=== PATIENT | male | born 1965 | race American Indian/Alaskan Native ===

== ENCOUNTER 2017-01-19 13:47 | Emergency (ER) | payer MEDICAID ==
[2017-01-19 14:10] VITALS: BP 109/59
[2017-01-19] MEDS ORDERED: LORazepam 2 MG/ML MDV IVPUSH ONE (14:31)
[2017-01-19] MEDS ORDERED: Sodium Chloride 0.9% 10 ML Syringe FLUSH PRN (14:32)
--- NOTE | 2017-01-19 14:44 | EDM.PDOC ---
ED HPI GENERAL MEDICAL PROBLEM - General Chief Complaint: Drug or Alcohol Abuse Stated Complaint: BEEN DRINKING Time Seen by Provider: 01/19/17 14:10 Source of Information: Reports: Patient, Police History Limitations: Reports: No limitations - History of Present Illness INITIAL COMMENTS - FREE TEXT/NARRATIVE: Patient presents today via [facility] police for evaluation for detox. Patient alert, oriented x 3, diaphoretic, shaking of body. Able to answer questions appropriately. He denies hallucinations, nausea, vomiting and diarrhea at this time. [place] reports he likes to drink whiskey, beer or whatever he has available on a daily basis. He uses hydrocodone, marijuana on a weekly or daily basis. Patient appears to be experiencing withdrawal. Onset: today Onset Date: 01/19/17 Location: Reports: generalized Treatments TELEVISION PRODUCTION CLERK: Reports: Other (see below) Other Treatments TELEVISION PRODUCTION CLERK: Patient received insulin per [facility]. Bilateral Leg Pain Score (Numeric/FACES): 7 - Related Data Allergies Allergy/AdvReac Type Severity Reaction Status Date / Time tramadol Allergy Seizure Verified 01/19/17 14:28 Past Medical History Cardiovascular History: Reports: Hypertension Neurological History: Reports: Neuropathy, diabetic Psychiatric History: Reports: Addiction Endocrine/Metabolic History: Reports: Diabetes, type II - Past Surgical History Cardiovascular Surgical History: Reports: Vascular surgery Social & Family History - Tobacco Use Smoking Status *Q: Former Smoker Used Tobacco, but Quit: Yes Month Tobacco Last Used: january - Caffeine Use Caffeine Use: Reports: Coffee - Alcohol Use Days Per Week of Alcohol Use: 7 Number of Drinks Per Day: 10 Total Drinks Per Week: 70 - Recreational Drug Use Recreational Drug Use: Yes Drug Use in Last 12 Months: Yes Recreational Drug Type: Reports: Marijuana/Hashish, Oxycodone Recreational Drug Use Frequency: Daily ED ROS GENERAL - Review of Systems Review Of Systems: See Below Constitutional: Reports: diaphoresis. Denies: fever, chills, weakness HEENT: Reports: No symptoms Respiratory: Reports: No Symptoms. Denies: Shortness of Breath, Wheezing, Cough , Sputum Cardiovascular: Denies: Chest pain, Blood pressure problem, Claudication, Dyspnea on exertion, Edema, Lightheadedness, Palpitations Endocrine: Reports: no symptoms. Denies: fatigue GI/Abdominal: Reports: No symptoms. Denies: Abdominal pain, Black stool, Bloody stool, Constipation, Diarrhea, Nausea, Vomiting : Reports: no symptoms. Denies: dysuria, flank pain, hematuria Musculoskeletal: Reports: muscle pain, other (He complains of neuropathy to bilateral lower extremities and pain to left knee which is chronic in nature. ) Skin: Reports: diaphoresis. Denies: rash, erythema, wound, change in color Neurological: Reports: Tremors, Difficulty Walking, Other (Gait unsteaday at times. ). Denies: Confusion, Dizziness, Headache, Numbness, Paresthesia, Seizure, Tingling, Trouble Speaking Psychiatric: Reports: Anxiety. Denies: Confusion, Hallucinations, Suicidal ideation Hematologic/Lymphatic: Reports: no symptoms Immunologic: Reports: no symptoms ED EXAM, GENERAL - Physical Exam Exam: See Below Free Text/Narrative:: At time of presentation, patient in handcuffs, officer present. Tremulousness, mild anxiety, diaphoresis, normal mental status without headache , GI upset, palpitations. Exam Limited By: No limitations General Appearance: alert, moderate distress, other (Tremors, diaphoretic) Eye Exam: bilateral eye: normal inspection, PERRL Ears: normal external exam, normal canal, hearing grossly normal, normal TMs Nose: normal inspection, normal mucosa, no blood Throat/Mouth: Normal inspection, Other (Multiple dental decay to present teeth. ) Neck: normal inspection, supple, non-tender, full range of motion Respiratory/Chest: no respiratory distress, lungs clear, normal breath sounds, no accessory muscle use, chest non-tender. No: respiratory distress Cardiovascular: normal peripheral pulses, no edema, no murmur, no rub, other ( Sinus tach at rate of 130 to 140 BPM) Peripheral Pulses: 2+: radial (L), radial (R), dorsalis pedis (L), dorsalis pedis (R) GI/Abdominal: normal bowel sounds, soft, non tender, no organomegaly, no distention, no mass Back Exam: normal inspection, full range of motion. No: CVA tenderness (R), CVA tenderness (L) Extremities: normal inspection, normal range of motion, no pedal edema, normal capillary refill, leg pain, other (Patient reports chronic pain from neuropathy. ). No: redness Neurological: alert, oriented, normal cognition, other (Gait unsteady, tremors to all extremities. ) Psychiatric: anxious Skin Exam: Warm, Intact, Normal color, Diaphoretic. No: Cyanosis, Erythema, Mottled, Pallor Lymphatic: no adenopathy Course - Vital Signs Last Recorded V/S: Last Vital Signs Temp 36.6 C 01/19/17 14:07 Pulse 139 H 01/19/17 14:07 Resp 20 01/19/17 14:07 BP 109/59 L 01/19/17 14:07 Pulse Ox 97 01/19/17 14:07 - Orders/Labs/Meds Orders: Active Orders 24 hr Category Date Time Status Insulin Detemir [Levemir] Med 01/19/17 21:00 Active 10 unit SUBCUT BID Sodium Chloride 0.9% [Saline Flush] Med 01/19/17 14:32 Active 10 ml FLUSH ASDIRECTED PRN Saline Lock Insert [OM.PC] Routine Oth 01/19/17 14:32 Ordered Medication Orders Insulin Detemir (Levemir) 10 unit SUBCUT BID MISA Sodium Chloride (Saline Flush) 10 ml FLUSH ASDIRECTED PRN PRN Reason: Keep Vein Open Last Admin: 01/19/17 14:40 Dose: 10 ml Labs: Laboratory Tests 01/19/17 01/19/17 01/19/17 Range/Units 14:22 14:24 14:24 WBC 15.3 H (4.5-11.0) K/uL RBC 5.34 (4.30-5.90) M/uL Hgb 15.8 H (12.0-15.0) g/dL Hct 46.5 (40.0-54.0) % MCV 87 (80-98) fL MCH 30 (27-31) pg MCHC 34 (32-36) % Plt Count 233 (150-400) K/uL Neut % (Auto) 71 H (36-66) % Lymph % (Auto) 21 L (24-44) % [place] % (Auto) 6 (2-6) % Eos % (Auto) 1 L (2-4) % Baso % (Auto) 1 (0-1) % Sodium 143 (140-148) mmol/L Potassium 3.6 (3.6-5.2) mmol/L Chloride 102 (100-108) mmol/L Carbon Dioxide 29 (21-32) mmol/L Anion Gap 12.5 (5.0-14.0) mmol/L BUN 12 (7-18) mg/dL Creatinine 0.9 (0.8-1.3) mg/dL Est Cr Clr Drug Dosing 113.96 mL/min Estimated GFR (MDRD) > 60 (>60) Glucose 85 (74-106) mg/dL Calcium 9.1 (8.5-10.1) mg/dL Total Bilirubin 0.4 (0.2-1.0) mg/dL AST 26 (15-37) U/L ALT 38 (12-78) U/L Alkaline Phosphatase 111 (46-116) U/L Total Protein 8.9 H (6.4-8.2) g/dL Albumin 4.2 (3.4-5.0) g/dL Globulin 4.7 H (2.3-3.5) g/dL Albumin/Globulin Ratio 0.9 L (1.2-2.2) Salicylates (2.0-20.0) mg/dL Urine Opiates Screen Negative (NEGATIVE) Ur Oxycodone Screen Negative (NEGATIVE) Urine Methadone Screen Negative (NEGATIVE) Ur Propoxyphene Screen Negative (NEGATIVE) Acetaminophen (10.0-30.0) ug/mL Ur Barbiturates Screen Negative (NEGATIVE) Ur Tricyclics Screen Positive H (NEGATIVE) Ur Phencyclidine Scrn Negative (NEGATIVE) Ur Amphetamine Screen Negative (NEGATIVE) U Methamphetamines Scrn Negative (NEGATIVE) Urine MDMA Screen Negative (NEGATIVE) U Benzodiazepines Scrn Negative (NEGATIVE) U Cocaine Metab Screen Negative (NEGATIVE) U Marijuana (THC) Screen Positive H (NEGATIVE) Ethyl Alcohol mg/dL 01/19/17 01/19/17 01/19/17 Range/Units 14:24 14:24 14:24 WBC (4.5-11.0) K/uL RBC (4.30-5.90) M/uL Hgb (12.0-15.0) g/dL Hct (40.0-54.0) % MCV (80-98) fL MCH (27-31) pg MCHC (32-36) % Plt Count (150-400) K/uL Neut % (Auto) (36-66) % Lymph % (Auto) (24-44) % [place] % (Auto) (2-6) % Eos % (Auto) (2-4) % Baso % (Auto) (0-1) % Sodium (140-148) mmol/L Potassium (3.6-5.2) mmol/L Chloride (100-108) mmol/L Carbon Dioxide (21-32) mmol/L Anion Gap (5.0-14.0) mmol/L BUN (7-18) mg/dL Creatinine (0.8-1.3) mg/dL Est Cr Clr Drug Dosing mL/min Estimated GFR (MDRD) (>60) Glucose (74-106) mg/dL Calcium (8.5-10.1) mg/dL Total Bilirubin (0.2-1.0) mg/dL AST (15-37) U/L ALT (12-78) U/L Alkaline Phosphatase (46-116) U/L Total Protein (6.4-8.2) g/dL Albumin (3.4-5.0) g/dL Globulin (2.3-3.5) g/dL Albumin/Globulin Ratio (1.2-2.2) Salicylates 2.2 (2.0-20.0) mg/dL Urine Opiates Screen (NEGATIVE) Ur Oxycodone Screen (NEGATIVE) Urine Methadone Screen (NEGATIVE) Ur Propoxyphene Screen (NEGATIVE) Acetaminophen 0.0 L (10.0-30.0) ug/mL Ur Barbiturates Screen (NEGATIVE) Ur Tricyclics Screen (NEGATIVE) Ur Phencyclidine Scrn (NEGATIVE) Ur Amphetamine Screen (NEGATIVE) U Methamphetamines Scrn (NEGATIVE) Urine MDMA Screen (NEGATIVE) U Benzodiazepines Scrn (NEGATIVE) U Cocaine Metab Screen (NEGATIVE) U Marijuana (THC) Screen (NEGATIVE) Ethyl Alcohol < 3 mg/dL Meds: Medications Generic Name Dose Route Start Last Admin Trade Name Freq PRN Reason Stop Dose Admin Insulin Detemir 10 unit 01/19/17 21:00 Levemir SUBCUT BID MISA Sodium Chloride 10 ml 01/19/17 14:32 01/19/17 14:40 Saline Flush FLUSH 10 ml ASDIRECTED PRN Administration Keep Vein Open Discontinued Medications Generic Name Dose Route Start Last Admin Trade Name Freq PRN Reason Stop Dose Admin Lorazepam 1 mg 01/19/17 14:31 01/19/17 14:39 Ativan IVPUSH 01/19/17 14:32 1 mg ONETIME ONE Administration Lorazepam 1 mg 01/19/17 15:30 Ativan PO 05/06/17 15:31 ONETIME ONE [facility] Omeprazole 20mg PO twice per day. Aspirin 81mg PO daily Levemir 10 Units subcutaneous twice per day Aspart insulin 30 units subcutaneous three times per day Nortriptyline 25 mg PO twice per day Lisinopril 10 mg PO daily Metoprolol succinate 50mg PO daily Bupropion 150mg PO daily Ibuprofen 600mg PO every 8 hours as needed. Robaxin 750mg PO four times a day. Senokot 1 tablet daily. Reported allergies to demerol and tramadol. - Re-Assessments/Exams Free Text/Narrative Re-Assessment/Exam: 01/19/17 15:31 Patient had good results with use of lorazepam, able to rest on side without any untoward effects at this time. [facility] notified, they accept patient for detox. he is provided levemir and pen needles. Scripts completed for 30 day supply for use of [facility]: Aspirin 81mg PO daily Levemir 10 Units subcutaneous twice per day Aspart insulin 30 units subcutaneous three times per day Nortriptyline 25 mg PO twice per day Lisinopril 10 mg PO daily Metoprolol succinate 50mg PO daily Bupropion 150mg PO daily 01/19/17 15:[address] Haq, he is in agreement with plan for patient to report to [facility] for detox. Patient notified of plan. Labwork reviewed with patient. He is in agreement. Patient will be discharged via police custody and taken to [facility]. Departure - Departure Time of Disposition: 15:27 Disposition: DC/Tfer to Other 70 Condition: fair Clinical Impression: Alcohol abuse, Alcohol withdrawal syndrome Instructions: Alcohol Use Disorder, Alcohol Intoxication, [id number] Referrals: PCP,None [Primary Care Provider] - Forms: ED Department Discharge Additional Instructions: Report to [facility] for alcohol withdrawal. Return for worsening, seizures. - My Orders Last 24 Hours: My Active Orders 01/19/17 14:32 Sodium Chloride 0.9% [Saline Flush] 10 ml FLUSH ASDIRECTED PRN Saline Lock Insert [OM.PC] Routine 01/19/17 21:00 Insulin Detemir [Levemir] 10 unit SUBCUT BID - Assessment/Plan Last 24 Hours: My Active Orders 01/19/17 14:32 Sodium Chloride 0.9% [Saline Flush] 10 ml FLUSH ASDIRECTED PRN Saline Lock Insert [OM.PC] Routine 01/19/17 21:00 Insulin Detemir [Levemir] 10 unit SUBCUT BID
[2017-01-19] MEDS ORDERED: LORazepam 1 MG Tab PO ONE (15:30)
[2017-01-19] MEDS ORDERED: Insulin Detemir 100 Units/ML 3 ML Pen SUBCUT SCH (21:00)
== END 2017-01-19 15:49 | disposition other institution (70) ==
LOC: JP.ED 13:47
DX: F10.239 Alcohol dependence with withdrawal, unspecified (principal); I10 Essential (primary) hypertension; E11.40 Type 2 diabetes mellitus with diabetic neuropathy, unspecified; Z88.5 Allergy status to narcotic agent; Z87.891 Personal history of nicotine dependence
CPT/HCPCS: 36415; 80053; 80305; 85025; 96374; 99284; 99285; A9270; G0480; J2060; J7050